=== PATIENT | female | born 1945 | race Two or more races ===

== ENCOUNTER 2024-09-06 09:15 | Inpatient (IN) | payer OTHER ==
[~2024-09-06] VITALS: Ht 91.4 cm; Wt 82.6 kg
[2024-09-06 10:21] VITALS: BP 151/82
[2024-09-06 10:21] LABS: HEMATOCRIT 39.8 % (36.0-45.00); HEMOGLOBIN 13.8 g/dL (12.0-15.00); MEAN CELL VOLUME 90.2 fL (80.00-100.00); MEAN CORPUSCULAR HEMOGLOBIN 31.3 pg (27.00-32.0); MEAN CORPUSCULAR HGB CONC 34.7 g/dl (32.0-36.0); PLATELET COUNT 298 K/uL (150-450); RED BLOOD COUNT 4.41 M/uL (4.00-6.00); RED CELL DISTRIBUTION WIDTH 13.8 % (11.5-14.5)
[2024-09-06] MEDS ORDERED: ANASTROZOLE (10:24)
[2024-09-06] MEDS ORDERED: TENORMIN25 MG PO (10:24)
[2024-09-06 10:25] VITALS: BP 124/64
[2024-09-06 10:41] LABS: INR 0.94; PARTIAL THROMBOPLASTIN TIME 29.5 SECONDS (22.0-34.0); PROTHROMBIN TIME 10.3 SECONDS (9.0-11.5)
[2024-09-06 11:32] LABS: ALBUMIN 3.8 gm/dL (3.4-5.0); BILIRUBIN TOTAL 0.29 mg/dL (0.3-1.2); CALCIUM 9.7 mg/dL (8.5-10.1); CREATININE SERUM 1.12 mg/dL (0.55-1.02); GFR 47.3; GLOBULINA 3.7 G/DL (2.4-3.5); POTASSIUM 5.22 mEq/L (3.5-5.1); TOTAL PROTEIN 7.5 gm/dL (6.4-8.2)
[2024-09-06 12:37] LABS: URINE APPEARANCE Clear; URINE BILIRRUBIN Negative (NEGATIVE); URINE BLOOD Negative; URINE COLOR Yellow; URINE GLUCOSE Negative (NEGATIVE); URINE KETONE Negative (NEGATIVE); URINE LEUKOCYTE Small; URINE NITRATE Negative; URINE PROTEIN Negative (NEGATIVE)
[2024-09-06 12:40] LABS: URINE BACTERIA 370.4 uL (0.0-1933); URINE EPITHELIAL CELLS 44.1 uL (0.0-38.8); URINE WBC 4.7 uL (0.0-23.2)
[2024-09-06 12:48] LABS: URINE RBC 1.9 uL (0.0-20.8)
[2024-09-19] MEDS ORDERED: POVIDONE-IODINE 118 ML BOTT TOP ONE (16:30)
[2024-09-19] MEDS ORDERED: CEFAZOLIN SODIUM 1,000 MG VIAL IV ONE (16:30)
[2024-09-19] MEDS ORDERED: HEMOSTATIC MATRIX 1 KIT KIT TOP ONE (17:15)
[2024-09-19] MEDS ORDERED: SURGIFLO APPLICATOR 1 EACH APPL TOP ONE (17:15)
[2024-09-19 19:00] VITALS: BP 124/64
[2024-09-19] MEDS ORDERED: MORPHINE SULFATE 4 MG/ML VIAL IV ONE (19:00)
[2024-09-19] MEDS ORDERED: MEPERIDINE HCL/PF 50 MG/ML VIAL IV SCH (20:00)
[2024-09-19] MEDS ORDERED: PROMETHAZINE HCL 25 MG/ML AMPUL IV SCH (20:00)
[2024-09-20 00:09] LABS: HEMATOCRIT 42.1 % (36.0-45.00); HEMOGLOBIN 14.1 g/dL (12.0-15.00); MEAN CELL VOLUME 91.5 fL (80.00-100.00); MEAN CORPUSCULAR HEMOGLOBIN 30.7 pg (27.00-32.0); MEAN CORPUSCULAR HGB CONC 33.6 g/dl (32.0-36.0); PLATELET COUNT 280 K/uL (150-450); RED BLOOD COUNT 4.59 M/uL (4.00-6.00); RED CELL DISTRIBUTION WIDTH 14.1 % (11.5-14.5)
[2024-09-20 00:31] VITALS: BP 128/65
[2024-09-20] MEDS ORDERED: IBUprofen 800 MG TABLET PO SCH (02:00)
[2024-09-20] MEDS ORDERED: SIMETHICONE 125 MG CAPSULE PO SCH (05:00)
[2024-09-20] MEDS ORDERED: POLYETHYLENE GLYCOL 3350 17 GM BLIST.PACK PO SCH (05:00)
[2024-09-20] MEDS ORDERED: GABAPENTIN 300 MG CAPSULE PO SCH (05:00)
[2024-09-20] MEDS ORDERED: GABAPENTIN300 MG PO (07:00)
[2024-09-20] MEDS ORDERED: SIMETHICONE125 M1 PO (07:00)
[2024-09-20] MEDS ORDERED: POLY119PG PO (07:00)
[2024-09-20] MEDS ORDERED: IBUPROFEN800 MG PO (07:00)
[2024-09-20 07:44] VITALS: BP 103/63
== END 2024-09-20 09:29 | disposition home or self-care (01) | DRG 743 ==
LOC: O/R 09-19 05:55 → SURG 09-19 09:15 → OB/GYN 09-19 18:29
PROVIDERS: ADMIT Obstetrics & Gynecology; ATTEND Obstetrics & Gynecology
PROC: 0JQC0ZZ Repair Pelvic Region Subcutaneous Tissue and Fascia, Open Approach (ICD-10-PCS; 2024-09-19)
PROC: 0UT9FZZ Resection of Uterus, Via Natural or Artificial Opening With Percutaneous Endoscopic Assistance (ICD-10-PCS; principal; 2024-09-19 16:30)
DX: D25.2 Subserosal leiomyoma of uterus (principal); D25.0 Submucous leiomyoma of uterus; N80.03 Adenomyosis of the uterus; N72 Inflammatory disease of cervix uteri; Z20.822 Contact with and (suspected) exposure to COVID-19; N81.11 Cystocele, midline